=== PATIENT | male | born 1975 | race Caucasian/White ===

== ENCOUNTER 2018-01-24 08:54 | Emergency (ER) | payer OTHER ==
[2018-01-24 09:25] VITALS: BP 119/79; PULSE 67; RESP 18; TEMP 97.6; O2SAT 98
--- NOTE | 2018-01-24 09:37 | ED PDOC ---
Arrival/HPI - General Chief Complaint: Lower Extremity Problem/Injury Time Seen by Provider: 01/24/18 09:21 Historian: Patient - History of Present Illness Narrative History of Present Illness (Text): 01/24/18 09:31 Pt is a 42 year old male with a history of left inguinal hernia repair with mesh who presents with right inguinal hernia pressure for the past year. Pt states that he is here for evaluation to see about receiving surgery. He reports that he can reduce it while lying down but while working, it bulges causing pressure. Denies fever, chills, skin discoloration, inguinal pain, GIB, nausea, vomiting or diarrhea or back pain. He has no PMD, nor insurance. Last hernia surgery was done in [place] where he lived [place] to the [place] Time/Duration: Other (> 1yr) Symptom Onset: Gradual Symptom Course: Unchanged Quality: Pressure Severity Level: Mild Activities at Onset: Rest, Light Context: Work Past Medical History - Provider Review Nursing Documentation Reviewed: Yes - Travel History Have you recently traveled outside [place] w/in the past 3 mons?: Yes If Yes, travel location?: [place] - Infectious Disease Hx of Infectious Diseases: None - Cardiac Hx Cardiac Disorders: No - Pulmonary Hx Respiratory Disorders: No - Neurological Hx Neurological Disorder: No - HEENT Hx HEENT Disorder: No - Renal Hx Renal Disorder: No - Endocrine/Metabolic Hx Endocrine Disorders: No - Hematological/Oncological Hx Blood Disorders: No - Psychiatric Hx Substance Use: No - Anesthesia Hx Anesthesia: No Family/Social History - Physician Review Nursing Documentation Reviewed: Yes Family/Social History: Unknown Family HX Smoking Status: Unknown If Ever Smoked Hx Alcohol Use: No Hx Substance Use: No Allergies/Home Meds Allergies/Adverse Reactions: Allergies No Known Allergies Allergy (Verified 01/24/18 09:19) Home Medications: Home Meds Medication Instructions Recorded Confirmed No Known Home Med 01/24/18 01/24/18 Review of Systems - Review of Systems Constitutional: Normal Gastrointestinal: Normal, Other (right inguinal hernia) Skin: Normal Neurological: Normal Endocrine: Normal Hemo/Lymphatic: Normal Psychiatric: Normal Physical Exam Vital Signs Reviewed: Yes Vital Signs Temp Pulse Resp BP Pulse Ox 01/24/18 09:14 97.6 F 67 18 119/79 98 Temperature: Afebrile Blood Pressure: Normal Pulse: Regular Respiratory Rate: Normal Appearance: Positive for: Well-Appearing, Non-Toxic, Comfortable Pain Distress: None Mental Status: Positive for: Alert and Oriented X 3 - Systems Exam Head: Present: Atraumatic, Normocephalic Pupils: Present: PERRL Extroacular Muscles: Present: EOMI Conjunctiva: Present: Normal Mouth: Present: Moist Mucous Membranes Neck: Present: Normal Range of Motion Respiratory/Chest: Present: Clear to Auscultation, Good Air Exchange. No: Respiratory Distress, Accessory Muscle Use Cardiovascular: Present: Regular Rate and Rhythm, Normal S1, S2. No: Murmurs Abdomen: No: Tenderness, Distention, Peritoneal Signs Genitourinary Male: Present: Normal External Genitalia, Hernias (right side; completely reducible; no indication of incarceration or strangulation). No: Circumcised Penis, Lesions, Penile Discharge, Testicle Tenderness, Penile Swelling, Masses, Erythema, Testicle Swelling, Prostate Tenderness, Prostate Enlargement, Other Back: Present: Normal Inspection Upper Extremity: Present: Normal Inspection. No: Cyanosis, Edema Lower Extremity: Present: Normal Inspection. No: Edema Neurological: Present: GCS=15, CN II-XII Intact, Speech Normal Skin: Present: Warm, Dry, Normal Color. No: Rashes Psychiatric: Present: Alert, Oriented x 3, Normal Insight, Normal Concentration Medical Decision Making ED Course and Treatment: 01/24/18 09:38 Impression Pt is a 42 year old male with a history of left inguinal hernia repair with mesh who presents with a right inguinal hernia for the past year. On exam, the right inguinal mass is of normal color, non-pulsatile, and completely reducible; while in supine the hernia remains reduced, on standing the hernia slowly protrudes again but not causing pain; the rest of the exam is benign Plan Discussed follow up outside of ER to schedule elective surgery if pt feels he requires hernia repair Counseled on the stages of inguinal hernias and when emergent care is necessary Pt is hemodynamically stable to be discharged Disposition/Present on Arrival - Present on Arrival Any Indicators Present on Arrival: Yes History of DVT/PE: No History of Uncontrolled Diabetes: No Urinary Catheter: No History of Decub. Ulcer: No History Surgical Site Infection Following: None - Disposition Have Diagnosis and Disposition been Completed?: Yes Diagnosis: Inguinal hernia Disposition: HOME/ ROUTINE Disposition Time: 09:47 Patient Plan: Discharge Condition: GOOD Discharge Instructions (ExitCare): Groin Hernia (DC) Additional Instructions: Porfirio, please follow up with a Primary Medical Doctor to discuss scheduling surgery for your Hernia. If you have worsening of symptoms, return to the emergency department . All the best Referrals: [facility] [Outside] - Follow up with primary Roshni Saini MD [Staff Provider] - Follow up with primary Forms: [facility] ([place])
== END 2018-01-24 10:01 | disposition home or self-care (01) ==
LOC: ED 08:54
DX: K40.90 Unilateral inguinal hernia, without obstruction or gangrene, not specified as recurrent (principal)

== ENCOUNTER 2018-03-17 09:42 | Emergency (ER) | payer OTHER ==
--- NOTE | 2018-03-17 10:33 | ED PDOC ---
Arrival/HPI - General Chief Complaint: Abdominal Pain Time Seen by Provider: 03/17/18 10:12 Historian: Patient - History of Present Illness Narrative History of Present Illness (Text): you were treated in the ED today for hx of prior left sided inguinal hernia and for the past 1 month having intermittent right inguinal hernia discomfort/ protrusion and now having flare-up pain and having difficulty working but otherwise without any nausea/vomiting/headache/dizziness/difficulty breathing/ chest pain/abdomen pain/numbness/tingling/loss of limb function/pain with urination/penis pain/bleeding or discharge or testicular pain. Time/Duration: > month (1) Symptom Onset: Gradual Symptom Course: Intermittent Quality: Aching Severity Level: 2 Activities at Onset: Rest Context: Sitting Past Medical History - Provider Review Nursing Documentation Reviewed: Yes - Travel History Have you recently traveled outside [place] w/in the past 3 mons?: No - Infectious Disease Hx of Infectious Diseases: None - Cardiac Hx Cardiac Disorders: No - Pulmonary Hx Respiratory Disorders: No - Neurological Hx Neurological Disorder: No - HEENT Hx HEENT Disorder: No - Renal Hx Renal Disorder: No - Endocrine/Metabolic Hx Endocrine Disorders: No - Hematological/Oncological Hx Blood Disorders: No - Integumentary Hx Dermatological Disorder: No - Musculoskeletal/Rheumatological Hx Musculoskeletal Disorders: No - Gastrointestinal Hx Gastrointestinal Disorders: Yes Other/Comment: HERNIA - Genitourinary/Gynecological Hx Genitourinary Disorders: No - Psychiatric Hx Psychophysiologic Disorder: No Hx Substance Use: No - Anesthesia Hx Anesthesia: No Family/Social History - Physician Review Nursing Documentation Reviewed: Yes Family/Social History: No Known Family HX Smoking Status: Never Smoked Hx Alcohol Use: No Hx Substance Use: No Allergies/Home Meds Allergies/Adverse Reactions: Allergies No Known Allergies Allergy (Verified 03/17/18 10:01) Home Medications: Home Meds Medication Instructions Recorded Confirmed No Known Home Med 01/24/18 03/17/18 Review of Systems - Review of Systems Constitutional: Normal Eyes: Normal ENT: Normal Respiratory: Normal Cardiovascular: Normal Gastrointestinal: Normal Genitourinary Male: Other (right inguinal hernia) Musculoskeletal: Normal Skin: Normal Neurological: Normal Endocrine: Normal Hemo/Lymphatic: Normal Psychiatric: Normal Physical Exam Vital Signs Reviewed: Yes Vital Signs Temp Pulse Resp BP Pulse Ox 03/17/18 10:01 98.0 F 81 16 119/72 98 Temperature: Afebrile Blood Pressure: Normal Pulse: Regular Respiratory Rate: Normal Appearance: Positive for: Well-Appearing, Non-Toxic, Comfortable Pain Distress: None Mental Status: Positive for: Alert and Oriented X 3 - Systems Exam Head: Present: Atraumatic, Normocephalic Pupils: Present: PERRL Extroacular Muscles: Present: EOMI Conjunctiva: Present: Normal Ears: Present: Normal Mouth: Present: Moist Mucous Membranes Pharnyx: Present: Normal Nose (External): Present: Atraumatic Nose (Internal): Present: Normal Inspection Neck: Present: Normal Range of Motion Respiratory/Chest: Present: Clear to Auscultation, Good Air Exchange Cardiovascular: Present: Regular Rate and Rhythm Abdomen: No: Tenderness, Distention, Normal Bowel Sounds, Peritoneal Signs, Rebound, Guarding, McBurney's Point Tender, Rovsing's Sign Present, Hernias, Feeding Tubes, Ostomy Tubes, Mass/Organomegaly, Scars, Other Genitourinary Male: Present: Normal External Genitalia, Other (right inguinal groin protusion noted which extended into scrotum and easily reduced without any overlying redness/crepitus and otherwise both testicles without tenderness and in good position and no penis/scrotal tenderness without lesions/redness and scrotal good reflex) Back: Present: Normal Inspection Upper Extremity: Present: Normal Inspection Lower Extremity: Present: Normal Inspection Neurological: Present: GCS=15, CN II-XII Intact, Speech Normal, Motor Func Grossly Intact Skin: Present: Warm, Normal Color Psychiatric: Present: Alert, Oriented x 3, Normal Insight, Normal Concentration Medical Decision Making ED Course and Treatment: you were treated in the ED today for hx of prior left sided inguinal hernia and for the past 1 month having intermittent right inguinal hernia discomfort/ protrusion and now having flare-up pain and having difficulty working but otherwise without any nausea/vomiting/headache/dizziness/difficulty breathing/ chest pain/abdomen pain/numbness/tingling/loss of limb function/pain with urination/penis pain/bleeding or discharge or testicular pain. Refused sexual disease testing or treatment at this time. Passing gas and having a normal bowel movement and eating fine. You were otherwise breathing easily, smiling and talking easily, good strength/sensation, walking easily, clear lungs, no abdomen tenderness, right inguinal groin protusion noted which extended into scrotum and easily reduced without any overlying redness/crepitus and otherwise both testicles without tenderness and in good position and no penis/scrotal tenderness without lesions/redness and scrotal good reflex, no fever temp 98, stable heart rate 81, stable breathing rate 16, excellent oxygen level 98% room air, stable blood pressure 119/72 which we recommend repeat in 2-3 days primary care office to determine further treatment, right inguinal hernia evaluated with good reduction and you stated yourself it reduced and you felt improved, observation done in the ED with improvement, discussed with the surgery resident Dr. Mcintyre who stated you can be discharged home and recommend followup with [facility] for evaluation and planning for your hernia evaluation/repair, counselled to wear jockstrap for support and thus discharged home. 1. Recommend tylenol or motrin as directed for pain. 2. Recommend follow-up primary care 2-3 days to review symptoms., referral to surgery clinic to plan hernia repair. 4. If any worsening pain, fever, chills, nausea, vomiting, difficulty breathing, numbness, loss of limb function, pain with urination, unable to reduce hernia, skin redness, unable to eat/drink/pass gas or have a bowel movement or any medical condition then return to the ED. 03/17/18 10:35 03/17/18 10:48 03/17/18 11:11 d/w surgery resident Dr. Mcintyre who stated best to have patient fu [facility] as they have the services in places ie surgery clinic to establish hernia care. Reassessment Condition: Re-examined, Improved Disposition/Present on Arrival - Present on Arrival Any Indicators Present on Arrival: No History of DVT/PE: No History of Uncontrolled Diabetes: No Urinary Catheter: No History of Decub. Ulcer: No History Surgical Site Infection Following: None - Disposition Have Diagnosis and Disposition been Completed?: Yes Diagnosis: Inguinal hernia Disposition: HOME/ ROUTINE Disposition Time: 10:46 Patient Plan: Discharge Patient Problems: Current Active Problems Problem Status Onset Inguinal hernia Acute Condition: IMPROVED Discharge Instructions (ExitCare): Groin Hernia (DC) Additional Instructions: you were treated in the ED today for hx of prior left sided inguinal hernia and for the past 1 month having intermittent right inguinal hernia discomfort/ protrusion and now having flare-up pain and having difficulty working but otherwise without any nausea/vomiting/headache/dizziness/difficulty breathing/ chest pain/abdomen pain/numbness/tingling/loss of limb function/pain with urination/penis pain/bleeding or discharge or testicular pain. Refused sexual disease testing or treatment at this time. Passing gas and having a normal bowel movement and eating fine. You were otherwise breathing easily, smiling and talking easily, good strength/sensation, walking easily, clear lungs, no abdomen tenderness, right inguinal groin protusion noted which extended into scrotum and easily reduced without any overlying redness/crepitus and otherwise both testicles without tenderness and in good position and no penis/scrotal tenderness without lesions/redness and scrotal good reflex, no fever temp 98, stable heart rate 81, stable breathing rate 16, excellent oxygen level 98% room air, stable blood pressure 119/72 which we recommend repeat in 2-3 days primary care office to determine further treatment, right inguinal hernia evaluated with good reduction and you stated yourself it reduced and you felt improved, observation done in the ED with improvement, discussed with the surgery resident Dr. Mcintyre who stated you can be discharged home and recommend followup with [facility] for evaluation and planning for your hernia evaluation/repair, counselled to wear jockstrap for support and thus discharged home. 1. Recommend tylenol or motrin as directed for pain. 2. Recommend follow-up primary care 2-3 days to review symptoms., referral to surgery clinic to plan hernia repair. 4. If any worsening pain, fever, chills, nausea, vomiting, difficulty breathing, numbness, loss of limb function, pain with urination, unable to reduce hernia, skin redness, unable to eat/drink/pass gas or have a bowel movement or any medical condition then return to the ED. Referrals: Shaunna Britton MD [Medical Doctor] - Follow up with primary [facility] [Outside] - Follow up with primary [facility] [Outside] - Follow up with primary Forms: [facility] ([place]), WORK NOTE
[2018-03-17 11:13] VITALS: BP 121/69; PULSE 78; RESP 18; TEMP 98.1; O2SAT 99
== END 2018-03-17 11:32 | disposition home or self-care (01) ==
LOC: ED 09:42
DX: K40.90 Unilateral inguinal hernia, without obstruction or gangrene, not specified as recurrent (principal)